=== PATIENT | female | born 1980 ===

== ENCOUNTER 2020-10-22 00:33 | Emergency (ER) | payer OTHER ==
[~2020-10-22] VITALS: Ht 160 cm; Wt 102.1 kg
[~2020-10-22 00:33] MED LIST: ALBU90I INH; AZIT250 PO; RXALBOI INH
== END 2020-10-22 01:53 | disposition home or self-care (01) ==
LOC: ER 00:33
DX: R07.89 Other chest pain (principal); R07.81 Pleurodynia; Z79.899 Other long term (current) drug therapy
CPT/HCPCS: 71046; 96372; 99283-25; A9270; J1885

== ENCOUNTER → 2023-06-05 | Outpatient (CLI) | payer OTHER | LOC: LAB 12:30 → LAB SHORT 12:30 | DX: Z12.4 Encounter for screening for malignant neoplasm of cervix (principal) | CPT/HCPCS: G0123 ==

== ENCOUNTER → 2024-12-15 | Outpatient (CLI) | payer OTHER ==
[2024-12-16 08:02] LABS: Bacterial Vaginosis PCR Positive (NEGATIVE); Candida Group, PCR DETECTED (NOT DETECT); Candida glabrata-krusei, PCR DETECTED (NOT DETECT)
[2024-12-19 05:00] LABS: C. TRACHOMATIS BY TMA,THINPREP Negative (Negative); N. GONORRHOEAE BY TMA,THINPREP Negative (Negative)
== END ==
LOC: LAB 18:44 → LAB SHORT 18:44
PROVIDERS: Family Medicine
DX: B37.9 Candidiasis, unspecified (principal)
CPT/HCPCS: 81515; 87491; 87591; 87624; G0123